=== PATIENT | female | born 2005 | race Caucasian/White ===

== ENCOUNTER 2025-01-22 07:47 | Emergency (ER) | payer MEDICAID, SELFPAY ==
--- NOTE | ~2025-01-22 | XR_ITS ---
EXAMINATION: XR knee LT 3V DATE: 01/22/2025 08:31 INDICATION: Left knee injury post fall TECHNIQUE: Anteroposterior, oblique and crosstable lateral views of the left knee were obtained COMPARISON: None. FINDINGS: Alignment is normal. No fracture. No joint effusion/layering lipohemarthrosis. Soft tissues are unremarkable. IMPRESSION: 1. Negative left knee radiographs. Reviewed, dictated and finalized at location A.
--- NOTE | ~2025-01-22 | XR_ITS ---
EXAMINATION: XR hand LT min 3V DATE: 01/22/2025 08:31 INDICATION: Left hand injury post fall TECHNIQUE: Posteroanterior, oblique and lateral views of the left hand were obtained. COMPARISON: None. FINDINGS: Alignment is normal. No fracture. Joint spaces are normal. Soft tissues are unremarkable. IMPRESSION: 1. Negative left hand radiographs. Reviewed, dictated and finalized at location A.
--- NOTE | ~2025-01-22 | XR_ITS ---
EXAMINATION: XR ankle LT min 3V DATE: 01/22/2025 08:31 INDICATION: Left ankle twisting injury post fall TECHNIQUE: Anteroposterior, oblique, mortise, and lateral views of the left ankle were obtained. COMPARISON: None. FINDINGS: Alignment is normal. No fracture. Joint spaces are normal. Soft tissues are unremarkable. IMPRESSION: 1. Negative left ankle radiographs. Reviewed, dictated and finalized at location A.
[2025-01-22 07:53] VITALS: BP 147/87; PULSE 104; RESP 18; TEMP 36.5; O2SAT 97
--- NOTE | 2025-01-22 08:00 | ED_ITS ---
HPI - Fall General Chief Complaint: Fall Stated Complaint: fall down stairs Time Seen by Provider: 01/22/25 07:55 Source: patient Mode of arrival: ambulatory Limitations: no limitations History of Present Illness HPI Narrative: 19 years old white female came to the ED from home by ambulance complaining of left hand, left knee and left ankle pain prior to arrival. Patient was walking her daughter to the bus stop, rolled her left ankle causing her to fall. Patient landed on the left hand, no loss of consciousness, no head injury or any other injuries. She denies any fever, chills, nausea, vomiting, abdominal pain, chest pain, back pain, headache or neck pain Related Data Allergies Allergy/AdvReac Type Severity Reaction Status Date / Time No Known Allergies Allergy Verified 01/22/25 07:59 Review of Systems Review of Systems: All systems reviewed & are unremarkable except as noted in HPI and below Exam Narrative: General appearance: Well-developed, well-nourished Skin: Normal color Head: Normocephalic, nontraumatic Eyes: Clear conjunctiva ENT: Oropharynx normal, ears normal, nose normal Neck: Supple, nontender Chest and respiratory: Airway patent, no respiratory distress, no accessory muscle use Heart: Regular rate/rhythm Abdomen: Soft, nontender, no organomegaly, quiet bowel sounds Vascular: Normal peripheral pulses, normal capillary refill. Musculoskeletal: Left hand tenderness laterally, no bruises or swelling or deformity, left knee tenderness anteriorly, no bruises, no swelling or deformity with range of motion, diffuse tenderness left wrist, no deformity or swelling or bruises slight limited range of motion Neurologic: Alert and oriented ?3, MANUFACTURING QUALITY INSPECTOR is normal as tested, no gross motor deficit Course Vital Signs Vital signs: Vital Signs Temperature 36.5 C 01/22/25 07:53 Pulse Rate 104 H 01/22/25 07:53 Respiratory Rate 18 01/22/25 07:53 Blood Pressure 147/87 H 01/22/25 07:53 Pulse Oximetry 97 01/22/25 07:53 Oxygen Delivery Room Air 01/22/25 07:53 Temperature 36.5 C 01/22/25 07:53 Pulse Rate 104 H 01/22/25 07:53 Respiratory Rate 18 01/22/25 07:53 Blood Pressure 147/87 H 01/22/25 07:53 Pulse Oximetry 97 01/22/25 07:53 Oxygen Delivery Room Air 01/22/25 07:53 MDM - Fall MDM Narrative Medical decision making narrative: Patient rolled her left ankle and fell Differential diagnosis includes strain, sprain, fracture, contusion X-RAY OF THE LEFT HAND, LEFT KNEE AND LEFT ANKLE SHOWED NO ACUTE OSSEOUS ABNORMALITY Differential Diagnosis Differential diagnosis: Likely other (As above) Imaging Data Radiologist's impression: Impressions Hand X-Ray 01/22/25 08:58 IMPRESSION: 1. Negative left hand radiographs. Knee X-Ray 01/22/25 08:59 IMPRESSION: 1. Negative left knee radiographs. Ankle X-Ray 01/22/25 09:00 IMPRESSION: 1. Negative left ankle radiographs. Critical Care Time Critical Care Time Critical Care Time: No Discharge Plan Discharge Clinical Impression: Ankle sprain, Contusion of knee, Contusion of hand Patient Disposition: Home Condition: Stable Instructions: Ankle Sprain (DC), Contusion in Adults (ED), Knee Pain (ED) Additional Instructions: RETURN IF SYMPTOMS ARE WORSENING , CALL YOUR FAMILY PHYSICIAN FOR APPOINTMENT, TAKE TYLENOL, IBUPROFEN NEEDED FOR ACHES AND PAIN, CONTINUE HOME MEDICATIONS. Patient Language: Panamanian
--- OUTSIDE RECORDS SUMMARY | 2025-01-22 08:33 | XMS_ITS | Clinical Summary ---
Author Organization [facility] Address [address] [place] [address] Care Team Providers Care Hogshead Filler Name Role Phone Zulema Arredondo Primary Care Provider Source Comments [facility],non-owned Affiliates and Associated Physician Practices is amultiple site organization consisting of ambulatory clinics and hospital sitesin [place], [place], [place] and [place]. This disclosure is being madepursuant to the Care Everywhere program and may not contain all information available regarding this patient. Last updated 18.[facility] Allergies Active Allergy Reactions Criticality Noted Date Comments Penicillins Nausea and/or Vomiting 01/06/2019 Medications * Be aware that medications may not be up to date on this document. Alwaysverify current medications with the patient. fluticasone propionate (Flonase) 50 MCG/ACT nasal spray [place] 2 (two) sprays into each nostril once daily 16 g 10/16/2022 Active albuterol HFA (Proventil; Ventolin; Proair) 108 (90 Base) MCG/ACT inhaler Inhale 2 (two) puffs by mouth every 4 hours as needed 18 g 11/27/2022 Active buPROPion XL 24hr (Wellbutrin-XL) 150 MG tablet Take 1 tablet by mouth once daily 30 tablet 04/09/2023 Active Vit-DSS-Fe Fum-FA ( vitamin with iron) tablet Take 1 (one) tablet by mouth once daily Active Active Problems Problem Noted Date Diagnosed Date Anxiety 10/24/2022 10/24/2022 Depressive disorder 10/24/2022 10/24/2022 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 01/26/2019 Elevated LFTs Resolved Problems Problem Noted Date Diagnosed Date Resolved Date fever 10/24/2022 Family History Medical History Relation Name Comments Anesthesia Reaction Mother PONV Relation Name Status Comments Mother Social History Tobacco Use Types Packs/Day Years Used Date Smoking Tobacco: Never Passive Smoke Exposure: Yes Smokeless Tobacco: Never Tobacco Cessation:Counseling Given: Not Answered Alcohol Use Standard Drinks/Week Comments Never 0 (1 standard drink = 0.6 oz pur e alcohol) AUDIT-C Answer Date Recorded Frequency of Alcohol Consumption Never 01/07/2019 Average Number of Drinks Not on file 019 Frequency of Binge Drinking Not on file 12/12 PHQ-2 Answer Date Recorded Patient Health Questionnaire-2 Score 1 01/22/2023 Comments No Sex and Gender Information Value Date Recorded Sex Assigned at Not on file Legal Sex Female 9:00 PM CDT Gender Identity Not on file Sexual Orientation Not on file Last Filed Vital Signs Vital Sign Reading Time Taken Comments Blood Pressure 134/75 01/01/2024 2:37 PM CDT Pulse 98 01/01/2024 2:37 PM CDT Temperature 37.2 C (98.9 F) 02/05/2023 3:02 PM CDT Respiratory Rate 18 01/08/2023 3:49 PM CDT Oxygen Saturation 100% 01/01/2024 2:37 PM CDT Inhaled Oxygen Concentration - - Weight 101.6 kg (224 lb) 01/01/2024 2:37 PM CDT Height 167.6 cm (5' 6) 01/01/2024 2:37 PM CDT Body Mass Index 36.15 01/01/2024 2:37 PM CDT Plan of Treatment Health Maintenance Due Date Last Done Comments HPV VACCINE (1 - 3-dose series) 08/06/2018 MENINGOCOCCAL (Group B) VACCINE SHARED DECISION-MAKING (1 of 2 - Standard) 2019 DTAP/TDAP/TD VACCINES (1 - Tdap) 08/06/2022 HEPATITIS B VACCINE (1 of 3 - 19+ 3-dose series) 08/06/2022 COVID-19 VACCINE (4 - season) 2024 09/16/2020, 08/26/2020, 05/13/2020 CHLAMYDIA/GONORRHEA SCREENING 02/06/2024 02/05/2023, 10/24/2022, 01/06/2019 DEPRESSION SCREENING 05/13/2024 02/05/2023, 01/22/2023, 01/08/2023, Additional history exists PAP SMEAR 08/06/2024 INFLUENZA VACCINE (#1) 2025 9, 03/03/2015, 02/28/2011, Additional history exists ZOSTER VACCINE (1 of 2) 08/06/2053 HIV SCREENING Completed 10/26/2018 HEPATITIS C SCREENING Completed 10/15/2023 , 01/06/2019, 01/06/2019 HIB VACCINE Aged Out No longer eligi ble based on patient's age to complete this topic MENINGOCOCCAL GROUPS A/C/Y/W VACCINE Aged Out No longer eligible based on patient's age to complete this topic PNEUMOCOCCAL VACCINE Aged Out No long er eligible based on patient's age to complete this topic Procedures Procedure Name Priority Date/Time Associated Diagnosis Comments CHLAMYDIA + GC + TRICH DNA AMPL Routine 02/05/2023 3:15 PM CDT STD exposure HEPATITIS SCREEN ACUTE Routine 01/06/2019 11:11 PM CDT fever from Last 3 Months or Most Recently Relevant to Health Maintenance Results * CHLAMYDIA + GC + TRICH DNA AMPL (02/05/2023 3:15 PM CDT) Chlamydia trachomatis AMOR Negative Negative [facility] INSURANCE B[facility] GC DNA Probe Negative Negative [facility] Trichomonas vaginalis by AMOR Negative Negative [facility]URANCE BILL Microbiology URINE / Unknown 02/05/2023 3 :15 PM CDT 02/06/2023 Narrative Resulting Agency Comment Lab Testing performed at: [address] [place] [id number] [facility] APRN-INFORMATION TECHNOLOGY CONSULTANT LAB - MICROBIOLOGY ORDERABLE S Final Result [facility] INSURANCE BILL [address] [place] [address] * HEPATITIS SCREEN ACUTE (01/06/2019 11:11 PM CDT) HAV Antibody IgM Non Reactive Non Reactive 01/07/2019 12:17 AM CDT [facility] HBsAg Non Reactive Non Reactive 01/07/2019 12:17 AM CDT [facility] HBc Antibody IgM Non Reactive Non Reactive 01/07/2019 12:17 AM CDT [facility] HCV Antibody Screen Non Reactive Non Reactive 01/07/2019 12:17 AM CDT [facility] HCV S/C Ratio 0.13 0.00 - 0.79 01/07/2019 12:17 AM CDT [facility] Comment: Etddcc-he-ujfbmz ratio (S/CO) <0.80: Non Reactive Blood BLOOD SPECIMEN / Unknown Venipuncture / Unknown 01/06/2019 11:11 PM CDT 01/06/2019 11:21 PM CDT Narrative [facility] - 01/07/2019 12:17 AM CDT Non Reactive - Antibodies to Hepatitis C virus (HCV) were not detected, result does not exclude early acute HCV infection. Ines Carreon MD LAB - CHEMISTRY ORDERABLES F inal Result [facility] [address] [place] [address] from Last 3 Months or Most Recently Relevant to Health Maintenance Additional Health Concerns Infection Onset Date Last Indicated MRSA 01/06/2019 01/06/2019 Insurance MEDICAID [employer]ET[employer] [facility] MEDICAID [facility] Advance Directives * Full Code (Latest Code Status on File) Date Activated Date Inactivated Comments 01/26/2019 4:44 PM 01/27/2019 12:43 PM Care Teams Hogshead Filler Relationship Specialty Start Date End Date Zulema Arredondo APRN-[facility] [address] [place] [address] PCP - General Nurse Practitioner 10/16/22
== END 2025-01-22 09:52 | disposition home or self-care (01) ==
LOC: ANHED 08:27
PROVIDERS: Emergency Provider Emergency Medicine
DX: S93.402A Sprain of unspecified ligament of left ankle, initial encounter (principal); S80.02XA Contusion of left knee, initial encounter; S60.222A Contusion of left hand, initial encounter; W19.XXXA Unspecified fall, initial encounter
CPT/HCPCS: 73130; 73562; 73610; 99284